=== PATIENT | female | born 1930 | race Caucasian/White ===

== ENCOUNTER 2017-05-08 08:47 | Inpatient (IN) | payer MEDICARE ==
[2017-05-08] MEDS ORDERED: TYLENOL 325 MG PO STA (09:06)
[2017-05-08] MEDS ORDERED: ROCEPHIN 1 Gm-D5w 50 ml Bag** 1 G/50 ML IVPB IV STA (09:06)
[2017-05-08 09:08] LABS: Granulocyte Absolute (ANC) 3.67 (1.4-6.9); Hematocrit 49.6 % (35-47); Hemoglobin 16.3 gm/dl (12.0-16.0); Mean Cell Volume 91.9 fl (78-100); Mean Corpuscular Hgb Concent. 32.9 g/dl (32-36); Mean Platelet Volume 10.6 fl (6-9.5); Platelet Count 140 K/mm3 (150-450); Red Cell Distribution Width 14.3 % (11.5-14.0); White Blood Count 6.3 K/mm3 (4.0-10.5)
[2017-05-08 09:11] LABS: Appearance HAZY (CLEAR); Bilirubin NEGATIVE (NEGATIVE); Blood 250 Ery/ul (0-5); Glucose NEGATIVE (NEGATIVE); Ketones NEGATIVE (NEGATIVE); Leukocyte Esterase 2+ (NEGATIVE); Nitrite POSITIVE (NEGATIVE); Protein,Urine Dip 30 (Negative); Urobilinogen NORMAL mg/dL (0-1)
[2017-05-08] MEDS ORDERED: Sodium Chloride 0.9% 1000 ML 1,000 ML IV SCH (09:15)
[2017-05-08] MEDS ORDERED: ROCEPHIN 1 Gm-D5w 50 ml Bag** 1 G/50 ML IVPB IV ONE (09:21)
[2017-05-08] MEDS ORDERED: TYLENOL 325 MG ONE (09:21)
[2017-05-08] MEDS ORDERED: Sodium Chloride 0.9% 1000 ML 1,000 ML ONE (09:21)
[2017-05-08 09:22] LABS: Bacteria MANY /HPF (NEGATIVE); Epithelial Cells FEW /HPF (FEW); WBC 50-100 /HPF (0-5)
--- NOTE | 2017-05-08 09:25 | ERPHSYRPT ---
- History of Present Illness Time Seen by Provider: 05/08/17 08:56 Source: patient, family (son Jurgen), EMS Patient Subjective Stated Complaint: Pt states "Yesterday I felt lousy and I took my temp and I have a fever." Triage Nursing Assessment: Pt alert and oriented X 3, skin pwd. Pt able to speak in clear full sentences. Pt has rash on right breast that wraps around to the the right back and stops in the center of her back. Pt has open wound on her left ankle, approx 4 cm X 1/5 cm, no bleeding noted Physician History: CC: general weakness Hx: 86 y/o patient brought to ER per EMS. She noted general weakness, fever to 100 at home since last evening. 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 She has some headache. No sore throat, cough, abd pain, vomiting or diarrhea. She has been drinking water and sitting in her lazy boy but had trouble getting up due to general weakness. She sees Dr Nelson. Has hx of HTN. Lives alone. Allergic to Sulfa. She did not know she had a right chest/back rash. Timing/Duration: yesterday Severity: moderate Allergies/Adverse Reactions: Sulfa (Sulfonamide Antibiotics) Allergy (Verified 02/12/16 09:03) Hives Home Medications: Atenolol [Atenolol] 50 mg PO DAILY 05/08/17 [History] Diltiazem HCl [Cartia Xt] 300 mg PO DAILY 05/08/17 [History] Hx Tetanus, Diphtheria Vaccination/Date Given: Yes Hx Influenza Vaccination/Date Given: Yes Hx Pneumococcal Vaccination/Date Given: Yes Immunizations Up to Date: Yes - Review of Systems Constitutional: Fever, Fatigue, Malaise, Weakness Eyes: No Symptoms Ears, Nose, & Throat: No Nose Congestion, No Throat Pain Respiratory: No Cough, No Dyspnea Cardiac: Edema, No Chest Pain Abdominal/Gastrointestinal: No Abdominal Pain, No Nausea, No Vomiting, No Diarrhea Genitourinary Symptoms: No Dysuria Musculoskeletal: No Back Pain, No Fall Skin: Skin Lesions (ulcer right ankle) Neurological: Headache, No Dizziness, No Focal Weakness, No Parasthesia All Other Systems: Reviewed and Negative - Past Medical History Pertinent Past Medical History: Yes Neurological History: No Pertinent History ENT History: Cataracts Cardiac History: Hypertension Respiratory History: No Pertinent History Endocrine Medical History: No Pertinent History Musculoskeletal History: No Pertinent History GI Medical History: GI Bleed, Ulcer History: Other Psycho-Social History: No Pertinent History Female Reproductive Disorders: No Pertinent History Other Medical History: viral hepititis - Past Surgical History Past Surgical History: Yes Neuro Surgical History: No Pertinent History Cardiac: Vascular Surgery Respiratory: No Pertinent History Gastrointestinal: No Pertinent History Genitourinary: No Pertinent History Musculoskeletal: No Pertinent History Female Surgical History: No Pertinent History Other Surgical History: Tied off a varicose vein, cataracts removed, EGD - Social History Smoking Status: Never smoker Exposure to second hand smoke: No Drug Use: none Patient Lives Alone: Yes - Female History Hx Last Menstrual Period: no more - Nursing Vital Signs Nursing Vital Signs: Initial Vital Signs Temperature 101.2 F 05/08/17 08:49 Pulse Rate 96 H 05/08/17 08:49 Respiratory Rate 18 05/08/17 08:49 Blood Pressure 182/85 05/08/17 08:49 O2 Sat by Pulse Oximetry 95 05/08/17 08:49 Pain Scale Pain Intensity 0 - Physical Exam General Appearance: alert, other (pleasant elderly lady, talkative) Eye Exam: PERRL/EOMI Ears, Nose, Throat Exam: dry mucous membranes (cleansed with glycerine swabs) Neck Exam: normal inspection, non-tender, supple Respiratory Exam: normal breath sounds, No respiratory distress Cardiovascular Exam: regular rate/rhythm Gastrointestinal/Abdomen Exam: soft, No tenderness, No distention Extremity Exam: pedal edema, other (draining ulceration right medial ankle area without erythema) Neurologic Exam: alert, oriented x 3, cooperative, investigation division lieutenant II-XII nml as tested, sensation nml, No motor deficits Skin Exam: warm, dry, rash (vesicles with ulcerations dermatomal right chest around to right back consistent with zoster) SpO2 Interpretation: normal SpO2: 96 Oxygen Delivery: Room Air - Course Nursing assessment & vital signs reviewed: Yes EKG Interpreted by Me: RATE (90), Sinus Rhythm, NORMAL AXIS, Left [place] Deviation , LAFB, NORMAL INTERVALS (QTc 451), Non-specific ST Changes, Other (Poor R wave progression; PAC's) - Radiology Exams cxr X-ray Interpretation: Reviewed by me (increased interstitial markings, no consolidation) Ordered Tests: Active Orders 24 hr Category Date Time Status Tax Associate Attorney STAT Care 05/08/17 09:06 Active Cath for Specimen-Straight STAT Care 05/08/17 08:57 Active EKG-ER Only STAT Care 05/08/17 09:06 Active IV Insertion STAT Care 05/08/17 08:57 Active Pulse Oximetry (ED) STAT Care 05/08/17 09:06 Active CHEST 1 VIEW (PORTABLE) Stat Exams 05/08/17 09:06 Taken BLOOD CULTURE Stat Lab 05/08/17 09:20 Received CBC W DIFF Stat Lab 05/08/17 08:57 Completed CMP Stat Lab 05/08/17 08:55 Completed CULTURE,URINE Stat Lab 05/08/17 08:55 Received CULTURE,WOUND Stat Lab 05/08/17 09:20 Received Lactic Acid Stat Lab 05/08/17 08:57 Completed Manual Differential NC Stat Lab 05/08/17 08:57 Completed UA W/ MICROSCOPIC Stat Lab 05/08/17 08:55 Completed Medication Summary Generic Name Dose Route Start Last Admin Trade Name Freq PRN Reason Stop Dose Admin Acyclovir 800 mg 05/08/17 11:00 Zovirax 800 Mg PO 06/07/17 10:59 5XD JESUS Sodium Chloride 1,000 mls @ 100 mls/hr 05/08/17 09:15 05/08/17 09:23 Sodium Chloride 0.9% 1000 Ml IV 06/07/17 09:14 100 mls/hr .Q10H JESUS Administration Discontinued Medications Generic Name Dose Route Start Last Admin Trade Name Freq PRN Reason Stop Dose Admin Acetaminophen 975 mg 05/08/17 09:06 05/08/17 09:23 Tylenol 325 Mg PO 05/08/17 09:07 975 mg STAT STA Administration Acetaminophen Confirm 05/08/17 09:21 Tylenol 325 Mg Administered 05/08/17 09:22 Dose 975 mg .ROUTE .STK-MED ONE Ceftriaxone Sodium/Dextrose 1 g in 50 mls @ 100 mls/hr 05/08/17 09:06 09:22 Rocephin 1 Gm-D5w 50 Ml Bag IV 05/08/17 09:35 100 mls/hr STAT STA Administration Ceftriaxone Sodium/Dextrose Confirm 05/08/17 09:21 Rocephin 1 Gm-D5w 50 Ml Bag Administered 05/08/17 09:22 Dose 1 g in 50 mls @ ud IV .STK-MED ONE Ondansetron HCl 4 mg 05/08/17 09:36 05/08/17 09:53 Zofran 4 Mg/2 Ml Vial IV 05/08/17 09:37 4 mg STAT ONE Administration Ondansetron HCl Confirm 05/08/17 09:52 Zofran 4 Mg/2 Ml Vial Administered 05/08/17 09:53 Dose 4 mg .ROUTE .STK-MED ONE Lab/Rad Data: Laboratory Result Diagrams 05/08/17 08:57 05/08/17 08:55 Laboratory Results 05/08/17 05/08/17 05/08/17 Range/Units 09:20 08:57 08:57 WBC 6.3 (4.0-10.5) K/mm3 RBC 5.40 (4.1-5.4) M/mm3 Hgb 16.3 H (12.0-16.0) gm/dl Hct 49.6 H (35-47) % MCV 91.9 (78-100) fl MCH 30.1 (26-32) pg MCHC 32.9 (32-36) g/dl RDW 14.3 H (11.5-14.0) % Plt Count 140 L (150-450) K/mm3 MPV 10.6 H (6-9.5) fl Segmented Neutrophils 54 (36.0-66.0) % Lymphocytes (Manual) 41 (24-44) % Monocytes (Manual) 5 (0.0-12.0) % Differential Comment ABNORMAL Platelet Estimate NORMAL (NORMAL) Poikilocytosis 1+ Anisocytosis 1+ Sodium (136-145) mEq/L Potassium (3.5-5.1) mEq/L Chloride (98-107) mEq/L Carbon Dioxide (21-32) mEq/L Anion Gap (5-15) MEQ/L BUN (9-20) mg/dL Creatinine (0.55-1.30) mg/dl Estimated GFR ML/MIN Glucose (70-110) MG/DL Lactic Acid 1.8 (0.4-2.0) Calcium (8.5-10.1) mg/dL Total Bilirubin (0.2-1.0) mg/dL AST (15-37) U/L ALT (12-78) U/L Alkaline Phosphatase (46-116) U/L Serum Total Protein (6.4-8.2) gm/dL Albumin (3.4-5.0) g/dL Ur Collection Type Urine Color (YELLOW) Urine Appearance (CLEAR) Urine pH (5-6) Ur Specific [place] (1.005-1.025) Urine Protein (Negative) Urine Ketones (NEGATIVE) Urine Blood (0-5) Tony/ul Urine Nitrite (NEGATIVE) Urine Bilirubin (NEGATIVE) Urine Urobilinogen (0-1) mg/dL Ur Leukocyte Esterase (NEGATIVE) Urine Microscopic RBC (0-2) /HPF Urine Microscopic WBC (0-5) /HPF Ur Epithelial Cells (FEW) /HPF Urine Bacteria (NEGATIVE) /HPF Urine Culture Reflexed (NO) Urine Glucose (NEGATIVE) mg/dL Influenza Type A Ag NEGATIVE (NEGATIVE) Influenza Type B Ag NEGATIVE (NEGATIVE) RSV (PCR) NEGATIVE (Negative) Specimen Received 05/08/17 05/08/17 Range/Units 08:55 08:55 WBC (4.0-10.5) K/mm3 RBC (4.1-5.4) M/mm3 Hgb (12.0-16.0) gm/dl Hct (35-47) % MCV (78-100) fl MCH (26-32) pg MCHC (32-36) g/dl RDW (11.5-14.0) % Plt Count (150-450) K/mm3 MPV (6-9.5) fl Segmented Neutrophils (36.0-66.0) % Lymphocytes (Manual) (24-44) % Monocytes (Manual) (0.0-12.0) % Differential Comment Platelet Estimate (NORMAL) Poikilocytosis Anisocytosis Sodium 135 L (136-145) mEq/L Potassium 3.4 L (3.5-5.1) mEq/L Chloride 97 L (98-107) mEq/L Carbon Dioxide 26.9 (21-32) mEq/L Anion Gap 14.7 (5-15) MEQ/L BUN 10 (9-20) mg/dL Creatinine 0.78 (0.55-1.30) mg/dl Estimated GFR > 60 ML/MIN Glucose 103 (70-110) MG/DL Lactic Acid (0.4-2.0) Calcium 8.8 (8.5-10.1) mg/dL Total Bilirubin 1.00 (0.2-1.0) mg/dL AST 22 (15-37) U/L ALT 14 (12-78) U/L Alkaline Phosphatase 91 (46-116) U/L Serum Total Protein 8.8 H (6.4-8.2) gm/dL Albumin 3.8 (3.4-5.0) g/dL Ur Collection Type CATH Urine Color YELLOW (YELLOW) Urine Appearance HAZY (CLEAR) Urine pH 7.0 (5-6) Ur Specific [place] 1.010 (1.005-1.025) Urine Protein 30 (Negative) Urine Ketones NEGATIVE (NEGATIVE) Urine Blood 250 (0-5) Tony/ul Urine Nitrite POSITIVE (NEGATIVE) Urine Bilirubin NEGATIVE (NEGATIVE) Urine Urobilinogen NORMAL (0-1) mg/dL Ur Leukocyte Esterase 2+ (NEGATIVE) Urine Microscopic RBC 5-10 (0-2) /HPF Urine Microscopic WBC 50-100 (0-5) /HPF Ur Epithelial Cells FEW (FEW) /HPF Urine Bacteria MANY (NEGATIVE) /HPF Urine Culture Reflexed YES (NO) Urine Glucose NEGATIVE (NEGATIVE) mg/dL Influenza Type A Ag (NEGATIVE) Influenza Type B Ag (NEGATIVE) RSV (PCR) (Negative) Specimen Received 05-08-17 900 - Progress Progress Note: 05/08/17 10:20 She has febrile UTI. Also zoster. Pt and family aware of test results and plan. Spoke to Dr Dillon for IP admission. Will use rocephin and acyclovir. Discussed with .: Santana Will see patient in: hospital (full admit) Counseled pt/family regarding: lab results, diagnosis, need for follow-up, rad results - Departure Time of Disposition: 10:21 Departure Disposition: In-patient Admission Clinical Impression: UTI (urinary tract infection), Zoster, Ankle ulcer Condition: Fair Critical Care Time: No Referrals: JAVIER NELSON [Primary Care Provider] -
[2017-05-08 09:29] LABS: Mean Corpuscular Hemoglobin 30.1 pg (26-32)
[2017-05-08] MEDS ORDERED: Zofran 4 MG/2 ML VIAL IV ONE (09:36)
[2017-05-08 09:43] LABS: ALBUMIN 3.8 g/dL (3.4-5.0); ALKALINE PHOSPHATASE 91 U/L (46-116); ANION GAP 14.7 MEQ/L (5-15); BLOOD UREA NITROGEN 10 mg/dL (9-20); CHLORIDE 97 mEq/L (98-107); Calcium 8.8 mg/dL (8.5-10.1); Carbon Dioxide 26.9 mEq/L (21-32); Creatinine 1 0.78 mg/dl (0.55-1.30); EST GLOMERULAR FILTRATION RATE > 60 ML/MIN; Glucose 103 MG/DL (70-110); Potassium 3.4 mEq/L (3.5-5.1); SGOT/AST 22 U/L (15-37); SGPT/ALT 14 U/L (12-78); SODIUM 135 mEq/L (136-145); Total Protein 8.8 gm/dL (6.4-8.2)
[2017-05-08 09:46] LABS: Lymphocytes 41 % (24-44); Monocyte 5 % (0.0-12.0); Neutrophils 54 % (36.0-66.0); Total Cells Counted 100
[2017-05-08 09:47] LABS: ANISOCYTOSIS 1+; Platelet Estimate NORMAL (NORMAL); Poikilocytosis 1+
[2017-05-08] MEDS ORDERED: Zofran 4 MG/2 ML VIAL ONE (09:52)
[2017-05-08 10:19] LABS: INFLUENZA A NEGATIVE (NEGATIVE); INFLUENZA B NEGATIVE (NEGATIVE); RESPIRATORY SYNCTIAL VIRUS NEGATIVE (Negative)
[2017-05-08] MEDS ORDERED: Zofran 4 MG/2 ML VIAL IV PRN (11:17)
[2017-05-08] MEDS: Sodium Chloride 0.9% 1000 ML 1,000 ML IV SCH ×2 (11:22→19:59)
[2017-05-08] MEDS: ZOVIRAX 800 MG PO SCH ×4 (11:22→22:50)
[2017-05-08] MEDS: ENOXAPARIN SODIUM SQ SCH (12:13)
[2017-05-08] MEDS: PROTONIX 40 MG IV IV SCH (12:14)
[2017-05-08] MEDS: TENORMIN 50 MG PO SCH (15:37)
[2017-05-08] MEDS: Cardizem CD 300 MG PO SCH (15:38)
[2017-05-08] MEDS: TYLENOL 325 MG PO PRN ×2 (15:46→22:50)
--- NOTE | 2017-05-08 22:47 | XRAY ---
Indication: Sepsis. Comparison: February 16, 2016. Portable chest clear again with incidental left base calcified granuloma. Heart and mediastinal structures within normal limits for AP portable technique. Bony thorax intact again with mild osteopenia and degenerative changes. No new/acute findings. Impression: Nonacute chest with chronic features.
[2017-05-09] MEDS ORDERED: BENADRYL 12.5 MG/5 ML PO PRN (03:41)
[2017-05-09] MEDS: Sodium Chloride 0.9% 1000 ML 1,000 ML IV SCH ×2 (05:50→18:16)
[2017-05-09] MEDS: ZOVIRAX 800 MG PO SCH ×5 (05:52→22:00)
[2017-05-09] MEDS: ENOXAPARIN SODIUM SQ SCH (09:34)
[2017-05-09] MEDS: Cardizem CD 300 MG PO SCH (09:34)
[2017-05-09] MEDS: PROTONIX 40 MG IV IV SCH (09:34)
[2017-05-09] MEDS: ROCEPHIN 1 Gm-D5w 50 ml Bag** 1 G/50 ML IVPB IV SCH (09:34)
[2017-05-09] MEDS: TENORMIN 50 MG PO SCH (09:34)
--- NOTE | 2017-05-09 15:07 | PCM.NOTE ---
Date and Time: 05/09/17 1504 Subjective Assessment: She had some itching in the area of her shingles overnight but denies pain. She reports the benadryl did help. She denies a headache today and states she is feeling better but still weak and not ready to go home. - Review of Systems Constitutional: Weakness Eyes: No Symptoms Ears, Nose, & Throat: No Symptoms Respiratory: No Symptoms Cardiac: No Symptoms Abdominal/Gastrointestinal: No Symptoms Genitourinary Symptoms: No Symptoms Musculoskeletal: No Symptoms Skin: Pruritis, Rash Objective Exam General Appearance: no apparent distress, alert Neurologic Exam: alert, cooperative, normal mood/affect Skin Exam: normal color, warm, dry, other (blisters in dermatome distribution on right side of chest across breast and to back, some blisters are open.) Respiratory Exam: normal breath sounds, lungs clear, No crackles/rales, No rhonchi, No wheezing Cardiovascular Exam: regular rate/rhythm, normal heart sounds, No murmur, No friction rub, No gallop Gastrointestinal/Abdomen Exam: soft, normal bowel sounds, No tenderness, No distention, No mass, No guarding Extremity Exam: other (no c/c/e; right ankle dressed.) OBJECTIVE DATA Vital Signs: Vital Signs - 24 hr Temp Pulse Resp BP BP Pulse Ox 05/09/17 12:46 98 F 86 20 126/74 95 05/09/17 09:34 90 174/84 05/09/17 07:21 98 F 90 20 147/81 94 L 05/09/17 04:00 98.1 F 76 20 132/71 95 05/09/17 00:19 99.1 F 67 20 128/62 92 L 05/08/17 20:16 99.1 F 67 20 128/62 92 L 05/08/17 16:00 98 F 93 H 18 147/83 95 05/08/17 15:37 99 H 174/84 Pain Assessment - Last Documented Pain Intensity 0 Pain Scale Used 0-10 Pain Scale Intake and Output: Intake & Output 05/07/17 05/08/17 05/09/17 05/10/17 06:59 06:59 06:59 06:59 Intake Total 1822 420 Balance 1822 420 Weight 84.096 kg 84.731 kg Assessment/Plan (1) UTI (urinary tract infection) Current Visit: Yes Status: Acute Assessment & Plan: Continue ceftriaxone, Urine culture in lab. Code(s): N39.0 - URINARY TRACT INFECTION, SITE NOT SPECIFIED (2) Zoster Current Visit: Yes Status: Acute Assessment & Plan: Continue acyclovir. Benadryl as needed for itching. Code(s): B02.9 - ZOSTER WITHOUT COMPLICATIONS (3) Hypertension Current Visit: Yes Status: Acute Assessment & Plan: Currently well controlled. Code(s): I10 - ESSENTIAL (PRIMARY) HYPERTENSION
[2017-05-10] MEDS: Sodium Chloride 0.9% 1000 ML 1,000 ML IV SCH (02:45)
[2017-05-10 06:16] LABS: Granulocyte Absolute (ANC) 4.38 (1.4-6.9); Hematocrit 37.3 % (35-47); Hemoglobin 12.2 gm/dl (12.0-16.0); Mean Cell Volume 92.3 fl (78-100); Mean Corpuscular Hgb Concent. 32.7 g/dl (32-36); Mean Platelet Volume 10.6 fl (6-9.5); Platelet Count 134 K/mm3 (150-450); Red Blood Count 4.04 M/mm3 (4.1-5.4); Red Cell Distribution Width 13.7 % (11.5-14.0); White Blood Count 7.2 K/mm3 (4.0-10.5)
[2017-05-10 06:31] LABS: Mean Corpuscular Hemoglobin 30.1 pg (26-32)
[2017-05-10 06:35] LABS: ANION GAP 14.1 MEQ/L (5-15); BLOOD UREA NITROGEN 10 mg/dL (9-20); CHLORIDE 103 mEq/L (98-107); Calcium 7.8 mg/dL (8.5-10.1); Carbon Dioxide 21.5 mEq/L (21-32); Creatinine 1 0.59 mg/dl (0.55-1.30); EST GLOMERULAR FILTRATION RATE > 60 ML/MIN; Glucose 91 MG/DL (70-110); SODIUM 136 mEq/L (136-145)
[2017-05-10 06:37] LABS: Potassium 2.8 mEq/L (3.5-5.1)
[2017-05-10 07:10] LABS: Lymphocytes 16 % (24-44); Monocyte 9 % (0.0-12.0); Neutrophils 75 % (36.0-66.0); Platelet Estimate NORMAL (NORMAL); Poikilocytosis 1+; Total Cells Counted 100
[2017-05-10] MEDS: ZOVIRAX 800 MG PO SCH ×4 (08:40→20:23)
[2017-05-10] MEDS: POTASSIUM CHLORIDE 20 mEq IN WATER 100ML 20 MEQ/100 ML BAG IV SCH ×2 (08:40→10:50)
[2017-05-10] MEDS: D5W/0.45NS W/ 20mEq KCl 1000 ML 1,000 ML IV SCH (08:49)
--- NOTE | 2017-05-10 09:19 | HP ---
HISTORY OF PRESENT ILLNESS: This is an 86 year-old patient who presented to the emergency department. She reported she started feeling bad on and worse when she woke up this morning. She reports a temperature up to 101F and in general feeling weak. She called her son to come and check on her and he brought her to the emergency department for further evaluation. In the emergency department she was found to have a urinary tract infection as well as shingles over her right side from the midline across her breast around to the back. She reports no pain from this and did not know the rash was present. She does report a history of chicken pox in the past. She reports she has not had much of an appetite. She receives Meals On Wheels that she states helps with eating a well-balanced diet. She reports not sleeping well last night and she is concerned about taking care of herself at home at this point. REVIEW OF SYSTEMS: She denies any nausea, vomiting or diarrhea. No runny nose. She has a little bit of a headache. 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 She denies any pain from the rash that she has on her chest. She denies any dysuria. She has had a fever at home. PAST MEDICAL HISTORY: History of GI bleed. History of cataracts, hypertension. PAST SURGICAL HISTORY: Varicose vein surgery. Cataract surgery. Upper endoscopy. MEDICATIONS: Atenolol 50 mg p.o. daily, diltiazem 300 mg p.o. daily. ALLERGIES: SULFA. SOCIAL HISTORY: She lives alone. No tobacco or alcohol use. FAMILY HISTORY: Noncontributory. PHYSICAL EXAMINATION: VITAL SIGNS: Temperature current 98.9F, temperature max 101.2F, heart rate 82 to 99, respiratory rate 18 to 20, blood pressure 131 to 182 over 76 to 85. Oxygen saturation 93 to 94% on room air. GENERAL: The patient is sitting up a pleasant talkative lady in no acute distress. CVS: She has a regular rate and rhythm. No murmurs, gallops or rubs are appreciated. CHEST: Clear to auscultation bilaterally. No crackles or wheezes. ABDOMEN: Soft, nontender, nondistended with normal bowel sounds. EXTREMITIES: Her right lower leg is dressed. She had this leg reviewed in the emergency department. Please see the emergency room physician note on this. She has a rash in the dermatome distribution across her right breast radiating around to the midline to the back, this is erythematous with no induration, starting to form some blisters, a little bit of scabbing in the anterior medial aspect of the rash. LABORATORY DATA AND TESTS: Her UA had many bacteria, 50-100 white blood cell, 5-10 red blood cells. Influenza A/B and respiratory syncytial virus were negative. Sodium was 135, potassium 3.4, chloride 97. Hemoglobin 16.3. Chest x-ray currently no formal report from the radiologist. ASSESSMENT AND PLAN: 1) FEBRILE URINARY TRACT INFECTION: She has been started on ceftriaxone. Urine cultures have been sent, will continue to monitor the results of that sensitivity. 2) HERPES ZOSTER: She has been started on acyclovir, will continue with this. She currently does not have any pain from this. 3) HISTORY OF HYPERTENSION: We will restart her home antihypertensive and make sure she receives those doses today.
[2017-05-10] MEDS: ENOXAPARIN SODIUM SQ SCH (10:00)
[2017-05-10] MEDS: ROCEPHIN 1 Gm-D5w 50 ml Bag** 1 G/50 ML IVPB IV SCH (10:00)
[2017-05-10] MEDS: TENORMIN 50 MG PO SCH (10:00)
[2017-05-10] MEDS: PROTONIX 40 MG IV IV SCH (10:00)
[2017-05-10] MEDS: Cardizem CD 300 MG PO SCH (10:01)
[2017-05-11] MEDS: ZOVIRAX 800 MG PO SCH ×3 (00:19→10:41)
[2017-05-11] MEDS: D5W/0.45NS W/ 20mEq KCl 1000 ML 1,000 ML IV SCH (03:52)
[2017-05-11 07:27] LABS: Granulocyte Absolute (ANC) 4.66 (1.4-6.9); Hematocrit 40.2 % (35-47); Hemoglobin 13.3 gm/dl (12.0-16.0); Mean Cell Volume 91.4 fl (78-100); Mean Corpuscular Hemoglobin 30.2 pg (26-32); Mean Corpuscular Hgb Concent. 33.1 g/dl (32-36); Mean Platelet Volume 10.9 fl (6-9.5); Platelet Count 141 K/mm3 (150-450); Red Cell Distribution Width 13.6 % (11.5-14.0); White Blood Count 7.1 K/mm3 (4.0-10.5)
[2017-05-11 08:08] LABS: ANION GAP 13.4 MEQ/L (5-15); BLOOD UREA NITROGEN 5 mg/dL (9-20); CHLORIDE 103 mEq/L (98-107); Calcium 8.1 mg/dL (8.5-10.1); Carbon Dioxide 24.6 mEq/L (21-32); Creatinine 1 0.58 mg/dl (0.55-1.30); EST GLOMERULAR FILTRATION RATE > 60 ML/MIN; Glucose 117 MG/DL (70-110); SODIUM 138 mEq/L (136-145)
[2017-05-11 08:12] LABS: Potassium 2.8 mEq/L (3.5-5.1)
[2017-05-11 08:25] LABS: Eosinophil 4 % (0.00-3.0); Lymphocytes 22 % (24-44); Monocyte 8 % (0.0-12.0); Neutrophils 66 % (36.0-66.0); Total Cells Counted 100
[2017-05-11 08:26] LABS: Platelet Estimate NORMAL (NORMAL)
--- NOTE | 2017-05-11 09:18 | PCM.DCORD ---
- Discharge Discharge Date: 05/11/17 Disposition: DC TO [facility] Condition: Fair Prescriptions: New Acyclovir 800 mg [Zovirax 800 mg] 800 mg PO 5XD #15 tablet Amoxicillin/Potassium Clav [Augmentin 875 mg (Amox Tr-K Clv 875-125 mg)] 1 each PO BID #6 tablet Continue Diltiazem HCl [Cartia Xt] 300 mg PO DAILY Atenolol 50 mg PO DAILY Follow up with: JAVIER PINEDA [Primary Care Provider] - 05/18/17 10:30 am Forms: Patient Portal Information
[2017-05-11] MEDS ORDERED: POTASSIUM CHLORIDE 20 mEq IN WATER 100ML 20 MEQ/100 ML BAG IV SCH (09:30)
[2017-05-11] MEDS ORDERED: Klor Con 10 MEQ PO SCH (10:00)
[2017-05-11] MEDS: PROTONIX 40 MG IV IV SCH (10:38)
[2017-05-11] MEDS: TENORMIN 50 MG PO SCH (10:41)
[2017-05-11] MEDS: ROCEPHIN 1 Gm-D5w 50 ml Bag** 1 G/50 ML IVPB IV SCH (10:43)
[2017-05-11] MEDS: ENOXAPARIN SODIUM SQ SCH (10:43)
[2017-05-11] MEDS: Cardizem CD 300 MG PO SCH (10:44)
[2017-05-11 10:46] VITALS: BP 149/71; PULSE 62
[2017-05-11 11:00] VITALS: O2SAT 96
--- NOTE | 2017-05-12 11:34 | DS ---
DISCHARGE DIAGNOSES: 1) URINARY TRACT INFECTION. 2) SHINGLES. 3) LEFT LOWER EXTREMITY LEG WOUND. HOSPITAL COURSE: The patient is an 86 year-old white female who has been experiencing increased weakness recently. She has large areas of shingles involving the right breast radiating around to her back. The patient reports that she got weak and presented to the emergency room. She was also found to have a urinary tract infection which did grow out Escherichia coli that was sensitive to everything. The wound likewise was positive for Escherichia coli also sensitive to everything. The patient had been placed on IV Rocephin. She improved with IV fluid hydration and Rocephin. The patient complained that she was too weak to return home at the end of the four days of her stay. We therefore consulted for rehab for the patient to there for a couple weeks for continued physical therapy and wound management. The patient's discharge plans were to be discharged on acyclovir 800 mg five times a day for additional three days and Augmentin 875 mg b.i.d. for additional three days also for urinary tract infection. The patient will have wound care management for the shingles and right lower extremity wound. The patient will be continued on her usual home medications otherwise as listed in the history and physical. It was also noted that the patient was hypokalemic and after receiving IV fluids now 2.8. She did receive potassium riders on two separate occasions and she was placed on oral potassium 10 mEq a day. We will be following this as an outpatient. The patient is not on any diuretic presently to explain her hypokalemia. The patient's CBC was good. The patient did apparently grow gram-positive cocci in the blood culture but I feel that this is likely a contaminant as the patient does not appear septic whatsoever and will likely come back as Staphylococcus Epidermis.
== END 2017-05-11 14:20 | DRG 690 ==
LOC: ED 08:47 → MED SURG 10:54
PROVIDERS: ADMIT Internal Medicine; ATTEND Family Medicine
DX: N39.0 Urinary tract infection, site not specified (principal); B96.20 Unspecified Escherichia coli [E. coli] as the cause of diseases classified elsewhere; L97.329 Non-pressure chronic ulcer of left ankle with unspecified severity; B02.9 Zoster without complications; S91.002A Unspecified open wound, left ankle, initial encounter; I10 Essential (primary) hypertension; E87.5 Hyperkalemia; I83.013 Varicose veins of right lower extremity with ulcer of ankle
CPT/HCPCS: 36415; 71045; 80048; 80053; 81000; 83605; 84132; 85025; 87040; 87070; 87077; 87086; 87186; 87631; 93005; 93041; 96360; 99285; J0696; J1650; J2405; J3480; P9612; A9270-GY

== ENCOUNTER 2017-12-28 01:10 | Inpatient (IN) | payer MEDICARE ==
[2017-12-28] MEDS ORDERED: Sodium Chloride 0.9% 1000 ML 1,000 ML IV STA (01:25)
[2017-12-28] MEDS ORDERED: Phenergan 25 MG INJ IV ONE (01:25)
--- NOTE | 2017-12-28 01:25 | ERPHSYRPT ---
- History of Present Illness Time Seen by Provider: 12/28/17 01:21 Source: patient, family (son) Exam Limitations: no limitations Physician History: The patient is an 87-year-old female with her son brought in by ambulance from home where she had a sudden onset of nausea and vomiting starting at 9 PM, 4 hours ago. She denies diarrhea. She has some crampy epigastric uneasiness. She states the nausea is making her feel terrible. She denies fever or chills. She was given Zofran 4 mg by IV by EMT without improvement. Her past medical history is significant for hypertension and gastric ulcer. Timing/Duration: hour(s) (4), sudden Severity: severe Associated Symptoms: nausea, vomiting, abdominal pain Allergies/Adverse Reactions: Sulfa (Sulfonamide Antibiotics) Allergy (Verified 12/28/17 01:22) Hives Home Medications: Atenolol 50 mg PO DAILY 05/08/17 [History] Diltiazem HCl [Cartia Xt] 300 mg PO DAILY 05/08/17 [History] Hx Tetanus, Diphtheria Vaccination/Date Given: Yes Hx Influenza Vaccination/Date Given: Yes Hx Pneumococcal Vaccination/Date Given: Yes - Review of Systems Constitutional: No Fever, No Chills Eyes: No Symptoms Ears, Nose, & Throat: No Symptoms Respiratory: No Cough, No Dyspnea Cardiac: No Chest Pain, No Edema, No Syncope Abdominal/Gastrointestinal: Abdominal Pain, Nausea, Vomiting, No Diarrhea Genitourinary Symptoms: No Dysuria Musculoskeletal: No Back Pain, No Neck Pain Skin: No Rash Neurological: No Dizziness, No Focal Weakness, No Sensory Changes Psychological: No Symptoms Endocrine: No Symptoms Hematologic/Lymphatic: No Symptoms Immunological/Allergic: No Symptoms All Other Systems: Reviewed and Negative - Past Medical History Pertinent Past Medical History: Yes Neurological History: No Pertinent History ENT History: Cataracts Cardiac History: Hypertension Respiratory History: No Pertinent History Endocrine Medical History: No Pertinent History Musculoskeletal History: No Pertinent History GI Medical History: GI Bleed, Ulcer History: Other Psycho-Social History: No Pertinent History Female Reproductive Disorders: No Pertinent History Other Medical History: viral hepititis - Past Surgical History Past Surgical History: Yes Neuro Surgical History: No Pertinent History Cardiac: Vascular Surgery Respiratory: No Pertinent History Gastrointestinal: No Pertinent History Genitourinary: No Pertinent History Musculoskeletal: No Pertinent History Female Surgical History: No Pertinent History Other Surgical History: Tied off a varicose vein, cataracts removed, EGD - Social History Smoking Status: Never smoker Exposure to second hand smoke: No Drug Use: none Patient Lives Alone: Yes - Nursing Vital Signs Nursing Vital Signs: Initial Vital Signs Pulse Rate 65 12/28/17 01:16 Respiratory Rate 18 12/28/17 01:16 Blood Pressure 175/104 12/28/17 01:16 O2 Sat by Pulse Oximetry 92 L 12/28/17 01:16 Pain Scale Pain Intensity 0 - Physical Exam General Appearance: moderate distress Eye Exam: PERRL/EOMI, eyes nml inspection Ears, Nose, Throat Exam: normal ENT inspection, TMs normal, pharynx normal, moist mucous membranes Neck Exam: normal inspection, non-tender, supple, full range of motion Respiratory Exam: normal breath sounds, lungs clear, No respiratory distress Cardiovascular Exam: regular rate/rhythm, normal heart sounds, normal peripheral pulses Gastrointestinal/Abdomen Exam: normal bowel sounds, tenderness (mild epigastric) Pelvic Exam: not done Rectal Exam: not done Back Exam: normal inspection, normal range of motion, No CVA tenderness, No vertebral tenderness Extremity Exam: normal inspection, normal range of motion, pelvis stable Neurologic Exam: alert, oriented x 3, cooperative, normal mood/affect, nml cerebellar function, nml station & gait, sensation nml, No motor deficits Skin Exam: normal color, warm, dry, No rash Lymphatic Exam: No adenopathy SpO2 Interpretation: normal - CT Exams Abdomen/Pelvis CT Interpretation: Discussed w/radiologist (per Dr Lunsford), Other (small bowel obstruction that initiates in the large left inquinal hernia.) Ordered Tests: Active Orders 24 hr Category Date Time Status Clean Catch Urine Specimen STAT Care 12/28/17 01:25 Active IV Insertion STAT Care 12/28/17 01:25 Active ABDOMEN AND PELVIS W/0 CONTRAS [CT] Stat Exams 12/28/17 01:25 Taken CBC W DIFF Stat Lab 12/28/17 01:50 Completed CMP Stat Lab 12/28/17 01:50 Completed CULTURE,URINE Stat Lab 12/28/17 01:40 Received Lactic Acid Stat Lab 12/28/17 01:44 Completed Lactic Acid Stat Lab 12/28/17 04:01 Ordered UA W/ MICROSCOPIC Stat Lab 12/28/17 01:40 Completed Medication Summary Discontinued Medications Generic Name Dose Route Start Last Admin Trade Name Patti PRN Reason Stop Dose Admin Famotidine 20 mg 12/28/17 01:28 12/28/17 01:38 Pepcid 20 Mg Vial IV 12/28/17 01:29 20 mg STAT ONE Administration Famotidine Confirm 12/28/17 01:32 Pepcid 20 Mg Vial Administered 12/28/17 01:33 Dose 20 mg IV .STK-MED ONE Sodium Chloride 1,000 mls @ 999 mls/hr 12/28/17 01:25 12/28/17 01:38 Sodium Chloride 0.9% 1000 Ml IV 12/28/17 02:25 999 mls/hr .Q1H1M STA Administration Sodium Chloride Confirm 12/28/17 01:32 Sodium Chloride 0.9% 1000 Ml Administered 12/28/17 01:33 Dose 1,000 mls @ ud .ROUTE .STK-MED ONE Ondansetron HCl 4 mg 12/28/17 02:27 12/28/17 02:32 Zofran 4 Mg/2 Ml Vial IV 12/28/17 02:28 4 mg STAT ONE Administration Ondansetron HCl Confirm 12/28/17 02:30 Zofran 4 Mg/2 Ml Vial Administered 12/28/17 02:31 Dose 4 mg .ROUTE .STK-MED ONE Promethazine HCl 25 mg 12/28/17 01:25 12/28/17 01:38 Phenergan 25 Mg Inj IV 12/28/17 01:26 25 mg STAT ONE Administration Promethazine HCl Confirm 12/28/17 01:32 Phenergan 25 Mg Inj Administered 12/28/17 01:33 Dose 25 mg .ROUTE .STK-MED ONE Lab/Rad Data: Laboratory Result Diagrams 12/28/17 01:50 12/28/17 01:50 Laboratory Results 12/28/17 12/28/17 12/28/17 Range/Units 01:50 01:50 01:44 WBC 15.4 H (4.0-10.5) K/mm3 RBC 5.47 H (4.1-5.4) M/mm3 Hgb 17.0 H (12.0-16.0) gm/dl Hct 51.1 H (35-47) % MCV 93.4 (78-100) fl MCH 31.0 (26-32) pg MCHC 33.3 (32-36) g/dl RDW 14.1 H (11.5-14.0) % Plt Count 180 (150-450) K/mm3 MPV 10.6 H (6-9.5) fl Gran % 83.7 H (36.0-66.0) % Eos # (Auto) 0.02 (0-0.5) Absolute Lymphs (auto) 1.08 (1.0-4.6) Absolute Monos (auto) 1.36 H (0.0-1.3) Lymphocytes % 7.0 L (24.0-44.0) % Monocytes % 8.9 (0.0-12.0) % Eosinophils % 0.1 (0.00-5.0) % Basophils % 0.3 (0.0-0.4) % Absolute Granulocytes 12.86 H (1.4-6.9) Basophils # 0.04 (0-0.4) Sodium 143 (137-145) mmol/L Potassium 4.2 (3.5-5.1) mmol/L Chloride 103 (98-107) mmol/L Carbon Dioxide 26 (22-30) mmol/L Anion Gap 17.9 H (5-15) MEQ/L BUN 27 H (7-17) mg/dL Creatinine 0.91 (0.52-1.04) mg/dL Estimated GFR > 60.0 ML/MIN Glucose 190 H (74-106) mg/dL Lactic Acid 2.0 (0.4-2.0) Calcium 9.7 (8.4-10.2) mg/dL Total Bilirubin 0.70 (0.2-1.3) mg/dL AST 20 (14-36) U/L ALT 13 (0-35) U/L Alkaline Phosphatase 114 (38-126) U/L Serum Total Protein 8.7 H (6.3-8.2) g/dL Albumin 4.8 (3.5-5.0) g/dL Ur Collection Type Urine Color (YELLOW) Urine Appearance (CLEAR) Urine pH (5-6) Ur Specific [place] (1.005-1.025) Urine Protein (Negative) Urine Ketones (NEGATIVE) Urine Blood (0-5) Tony/ul Urine Nitrite (NEGATIVE) Urine Bilirubin (NEGATIVE) Urine Urobilinogen (0-1) mg/dL Ur Leukocyte Esterase (NEGATIVE) Urine Microscopic RBC (0-2) /HPF Urine Microscopic WBC (0-5) /HPF Ur Epithelial Cells (FEW) /HPF Urine Bacteria (NEGATIVE) /HPF Urine Culture Reflexed (NO) Urine Glucose (NEGATIVE) mg/dL Specimen Received 12/28/17 Range/Units 01:40 WBC (4.0-10.5) K/mm3 RBC (4.1-5.4) M/mm3 Hgb (12.0-16.0) gm/dl Hct (35-47) % MCV (78-100) fl MCH (26-32) pg MCHC (32-36) g/dl RDW (11.5-14.0) % Plt Count (150-450) K/mm3 MPV (6-9.5) fl Gran % (36.0-66.0) % Eos # (Auto) (0-0.5) Absolute Lymphs (auto) (1.0-4.6) Absolute Monos (auto) (0.0-1.3) Lymphocytes % (24.0-44.0) % Monocytes % (0.0-12.0) % Eosinophils % (0.00-5.0) % Basophils % (0.0-0.4) % Absolute Granulocytes (1.4-6.9) Basophils # (0-0.4) Sodium (137-145) mmol/L Potassium (3.5-5.1) mmol/L Chloride (98-107) mmol/L Carbon Dioxide (22-30) mmol/L Anion Gap (5-15) MEQ/L BUN (7-17) mg/dL Creatinine (0.52-1.04) mg/dL Estimated GFR ML/MIN Glucose (74-106) mg/dL Lactic Acid (0.4-2.0) Calcium (8.4-10.2) mg/dL Total Bilirubin (0.2-1.3) mg/dL AST (14-36) U/L ALT (0-35) U/L Alkaline Phosphatase (38-126) U/L Serum Total Protein (6.3-8.2) g/dL Albumin (3.5-5.0) g/dL Ur Collection Type CCMS Urine Color YELLOW (YELLOW) Urine Appearance SLIGHTLY CLOUDY (CLEAR) Urine pH 7.0 (5-6) Ur Specific [place] 1.015 (1.005-1.025) Urine Protein 30 (Negative) Urine Ketones NEGATIVE (NEGATIVE) Urine Blood TRACE NON-HEM (0-5) Tony/ul Urine Nitrite POSITIVE (NEGATIVE) Urine Bilirubin NEGATIVE (NEGATIVE) Urine Urobilinogen NORMAL (0-1) mg/dL Ur Leukocyte Esterase 2+ (NEGATIVE) Urine Microscopic RBC 0-2 (0-2) /HPF Urine Microscopic WBC 5-10 (0-5) /HPF Ur Epithelial Cells MODERATE (FEW) /HPF Urine Bacteria MANY (NEGATIVE) /HPF Urine Culture Reflexed YES (NO) Urine Glucose NEGATIVE (NEGATIVE) mg/dL Specimen Received 12-28-17 0345 - Progress Progress: improved Progress Note: 12/28/17 05:19 There was significant delay in the reading of the abd/pelvis CT scan because our internet was down for 2 hrs. Discussed with : Adalgisa Nelson (yesika consulted and agrees that Dr Milton will see pt in 2 hrs.) Will see patient in: hospital (full admit) Counseled pt/family regarding: diagnosis, rad results - Departure Time of Disposition: 05:34 Departure Disposition: In-patient Admission Clinical Impression: Small bowel obstruction Condition: Stable Critical Care Time: No Referrals: DAMIÁN CAMPBELL [Primary Care Provider] -
[2017-12-28] MEDS ORDERED: Pepcid 20 MG VIAL IV ONE ×2 (01:28→01:32)
[2017-12-28] MEDS ORDERED: Phenergan 25 MG INJ ONE (01:32)
[2017-12-28] MEDS ORDERED: Sodium Chloride 0.9% 1000 ML 1,000 ML ONE (01:32)
[2017-12-28 01:52] LABS: BASOPHIL % 0.3 % (0.0-0.4); Basophil (Absolute #) 0.04 (0-0.4); Eosinophil % 0.1 % (0.00-5.0); Eosinophil (Absolute #) 0.02 (0-0.5); Granulocyte Absolute (ANC) 12.86 (1.4-6.9); Granulocytes % 83.7 % (36.0-66.0); Hematocrit 51.1 % (35-47); Lymphocyte (Absolute #) 1.08 (1.0-4.6); Mean Cell Volume 93.4 fl (78-100); Mean Corpuscular Hgb Concent. 33.3 g/dl (32-36); Mean Platelet Volume 10.6 fl (6-9.5); Monocyte (Absolute #) 1.36 (0.0-1.3); Monocytes % 8.9 % (0.0-12.0); Platelet Count 180 K/mm3 (150-450); Red Blood Count 5.47 M/mm3 (4.1-5.4); Red Cell Distribution Width 14.1 % (11.5-14.0); White Blood Count 15.4 K/mm3 (4.0-10.5)
[2017-12-28 02:23] LABS: ALBUMIN 4.8 g/dL (3.5-5.0); ALKALINE PHOSPHATASE 114 U/L (38-126); ANION GAP 17.9 MEQ/L (5-15); BLOOD UREA NITROGEN 27 mg/dL (7-17); CHLORIDE 103 mmol/L (98-107); Calcium 9.7 mg/dL (8.4-10.2); Carbon Dioxide 26 mmol/L (22-30); Creatinine 1 0.91 mg/dL (0.52-1.04); Glucose 190 mg/dL (74-106); Potassium 4.2 mmol/L (3.5-5.1); SGOT/AST 20 U/L (14-36); SGPT/ALT 13 U/L (0-35); SODIUM 143 mmol/L (137-145); Total Protein 8.7 g/dL (6.3-8.2)
[2017-12-28] MEDS ORDERED: Zofran 4 MG/2 ML VIAL IV ONE (02:27)
[2017-12-28] MEDS ORDERED: Zofran 4 MG/2 ML VIAL ONE (02:30)
[2017-12-28 04:51] LABS: Appearance SLIGHTLY CLOUDY (CLEAR); Bilirubin NEGATIVE (NEGATIVE); Blood TRACE NON-HEM Ery/ul (0-5); Glucose NEGATIVE (NEGATIVE); Ketones NEGATIVE (NEGATIVE); Leukocyte Esterase 2+ (NEGATIVE); Nitrite POSITIVE (NEGATIVE); Protein,Urine Dip 30 (Negative); Specific Gravity 1.015 (1.005-1.025); Urobilinogen NORMAL mg/dL (0-1)
[2017-12-28 04:52] LABS: Bacteria MANY /HPF (NEGATIVE); Epithelial Cells MODERATE /HPF (FEW); RBC 0-2 /HPF (0-2)
[2017-12-28] MEDS ORDERED: Zofran 4 MG/2 ML VIAL IV PRN (06:23)
[2017-12-28] MEDS ORDERED: Phenergan 25 MG INJ IM PRN (06:23)
[2017-12-28] MEDS ORDERED: PHARMACY DOSING REQUEST MC ONE (08:40)
[2017-12-28] MEDS ORDERED: Phenergan 25 MG INJ IV PRN (08:40)
--- NOTE | 2017-12-28 09:52 | HP ---
CHIEF COMPLAINT: Vomiting. HISTORY OF PRESENT ILLNESS: The patient is an 87 year-old white female who reports that yesterday she was doing fine, had supper out with her son but began having problems with nausea and vomiting that became intractable and presented herself to the emergency room. She reported she did have a bowel movement yesterday and actually had a fairly normal but soft bowel movement this morning. The patient was given IV Zofran and then given some Phenergan and admitted to the hospital. Evaluation in the emergency room revealed a CT scan showing what appeared to be a small bowel obstruction and incarcerated hernia. Surgical consultation is being obtained. PAST MEDICAL/SURGICAL HISTORY: Significant for problems with peptic ulcer disease and GI bleeding. She has had peripheral artery disease, poor healing wounds in her lower extremities. She has varicose vein removed. HOME MEDICATIONS: Atenolol 50 mg a day, diltiazem XT 300 mg daily. ALLERGIES: SULFA. PHYSICAL EXAMINATION: Revealed vital signs in the emergency room with pulse 65, respiratory rate 18 and blood pressure 175/104. O2 saturation 92%. HEENT: Normocephalic, atraumatic. Pupils equal round reactive to light. Extraocular movements intact. Oropharynx is pink and moist. NECK: Supple without lymphadenopathy, thyromegaly or JVD. CHEST: Clear to auscultation with good air movement bilaterally. HEART: Regular rate and rhythm without murmurs, rubs or gallops. ABDOMEN: Soft. No palpable masses. The bowel sounds are diminished. She has bilateral inguinal hernias present but is soft and not significantly tender. EXTREMITIES: Without clubbing, cyanosis or edema. NEUROLOGIC: The patient is alert and oriented x3. SKIN: The patient does have rash in the suprapubic area consistent with that of a fungal infection. LAB DATA AND TESTS: White blood cell count 15,400, hemoglobin 17.0, PLT count 180,000. There did appear to be a left shift with 83.7% granulocytes. Her sugar nonfasting was 190. BUN 27, creatinine 0.91. Electrolytes were normal. Liver enzymes were normal. Urine did show positive nitrite with 5 to 10 white blood cells per high power field. Specific gravity 1.015. Lactic acid 2.0. CT scan again showed what appeared to be small bowel obstruction related to inguinal hernia. There was also noted to be slight hydronephrosis and slight dilatation of right ureter. ASSESSMENT: A patient with: 1) Intractable vomiting and dehydration from possible small bowel obstruction. Surgical consultation is pending. The patient will be given IV fluids and placed at gut rest. We are currently leaving the NG tube until surgical evaluation as it appears the patient is already improving by the time of my evaluation. 2) Urinary tract infection: We will culture the urine and place the patient on Zosyn empirically to cover urinary tract infection and possible gut organisms.
[2017-12-28] MEDS: TENORMIN 50 MG PO SCH (10:45)
[2017-12-28] MEDS: Cardizem CD 300 MG PO SCH (10:45)
[2017-12-28] MEDS: LOTRIMIN CREAM 30 GM TP SCH ×4 (10:50→22:30)
[2017-12-28] MEDS: Zosyn 2.25 GM 2.25 GM in Dextrose 5%/Water IV Soln. 100ML PLUS BAG 100 ML IV SCH ×3 (10:50→23:48)
--- NOTE | 2017-12-28 11:21 | CONS ---
CONSULT DATE: 12/28/2017 This patient is seen for Dr. Claudio Pierre who was consulted during the night. HISTORY: An 87 year-old female with past history of perforated ulcer procedure by Dr. Pierre in the past according to the patient. She had some cramping, nausea, vomiting at 2100 hours last night. She came in and CT scan showed she had bilateral inguinal hernia and question of obstruction so they called Dr. Pierre. He asked that I see the patient while I was doing some other procedures here today. PAST MEDICAL HISTORY: Hypertension. Prior history of perforated ulcer according to the patient. Hepatitis in the past. She had some cataracts in the past. PAST SURGICAL HISTORY: Varicose vein surgery. She had cataracts removed. Upper endoscopy. She had ulcer treated by Dr. Pierre according to the patient. She has chronic inguinal area hernias. MEDICATIONS: Atenolol, diltiazem. ALLERGIES: SULFA. REVIEW OF SYSTEMS: Twelve systems reviewed pertinent for as noted above. No chest pain or palpitations. She did have a bowel movement this morning she states since she has been on the floor. She is afebrile. She is feeling better. LAB DATA AND TESTS: White blood cell count was 15 last night, hemoglobin 17. PLT count fine 180,000. Liver function test was okay. I do not see where they did a lipase. I do not see that on the chart. CT scan showed some fluid-filled bowel loops, got a large hiatal hernia, duodenal diverticulum. She had some fluid-filled small bowel loops, bilateral inguinal hernia, and some right hydronephrosis. The radiologist did not think there was a calculus in the distal ureter though. She did have a contaminated urine specimen. PHYSICAL EXAMINATION: GENERAL: No acute distress. She did not have NG in. HEENT: Sclera nonicteric. NECK: No JVD. CHEST: Equal excursion, nonlabored breathing. CVS: Regular rate and rhythm. ABDOMEN: Soft, nontender. No peritoneal signs. She had bilateral reducible inguinal hernia that are quite soft, nontender whatsoever. She does have rash in the groin area. She does wear Depends. EXTREMITIES: No significant edema. NEURO: Alert, moving extremities grossly symmetrically. IMPRESSION: An 87 year-old patient of Dr. Pierre who was consulted yesterday. Her CT's were reviewed with Dr. Calixto Graves which showed she does have bilateral hernia. He does not feel they are incarcerated at this time. On clinical exam they are quite soft and reducible. If there is a pattern on the CT scan more consistent with ileus or whether this is merely gastroenteritis, partial obstruction or other etiology is unclear but either way her bilateral inguinal hernias were completely reducible at this point as she does have a rash in the area. I feel it would be better if she can get over this episode to that explored more on elective basis with Dr. Pierre as he has already treated her when she gets over the rash. The patient also wants to avoid surgery at this time. She completely agrees with the plan. Therefore continue bowel rest, IV hydration. If she is passing more gas and having bowel movements, advance her diet and her reducible bilateral inguinal hernia repaired as an outpatient. If she develops any recurrent nausea and vomiting we recommend placing NG for decompression. Otherwise no emergent surgery necessary at this point. Discussed with Dr. Nelson who evaluated with the patient and he also agrees to the plan. Continue conservative management for now as her bilateral inguinal hernia is reducible, soft and nontender. It did not appear to be causing mildly dilated bowel at this time. Continue conservative management, follow up with Dr. Pierre for elective hernia repair when her rash improves. Again, the patient was seen for Dr. Claudio Pierre who has treated the patient in the past.
[2017-12-28] MEDS: Sodium Chloride 0.9% 1000 ML 1,000 ML IV SCH ×2 (11:37→22:23)
--- NOTE | 2017-12-28 14:11 | XRAY ---
Indication: Abdominal pain and vomiting. History of bleeding ulcer. Multiple contiguous axial images obtained through the abdomen and pelvis without contrast as ordered. Comparison: October 17, 2012. Lung bases again demonstrates moderate bilateral atelectasis/scarring. New left lower lobe calcified granuloma. No infiltrates or effusion. Heart remains enlarged. New large hiatal hernia with partial intrathoracic fluid distended stomach. Stomach is moderately distended with fluid/air. Interval enlarging descending duodenal diverticulum today measuring 4.9 cm in greatest dimension. Small bowel loops are now mild/moderately distended with fluid/air and synchronous fluid leveling favoring ileus. Interval enlarging large bilateral inguinal hernias with herniated bowel loops bilaterally. No evidence for incarceration/obstruction. There is distal colonic bowel gas with right hemicolon fecal debris and again scattered descending/sigmoid diverticulosis. No free fluid/air. There is now what appears to be complete prolapse of the uterus and urinary bladder. Both kidneys are also now mildly hydronephrotic without calculus or perinephric fluid. Remaining liver, gallbladder, pancreas, spleen, adrenal glands, kidneys, and ureters appear unremarkable for noncontrast exam. Again mild scattered aortoiliac calcifications without AAA. Osseous structures intact with multilevel lumbar degenerative spondylosis and grade 1 L4 spondylolisthesis. New small fatty midline epigastric ventral hernia. Impression: 1. Interval enlarging large bilateral inguinal hernias with herniated bowel loops but no evidence for incarceration/obstruction. 2. Distended stomach and small bowel loops with synchronous air fluid leveling favoring ileus. Mild/early distal obstruction not completely excluded in the right clinical setting especially given the inguinal hernias. 3. Enlarging large hiatal hernia with partial intrathoracic fluid distended stomach. 4. Enlarging duodenal diverticulum. 5. New complete prolapsed urinary bladder and uterus. 6. New mild bilateral hydronephrotic kidneys that may be related to prolapsed bladder. 7. New small fatty epigastric ventral hernia. 8. Again incidental colonic diverticulosis, cardiomegaly, and L4 grade 1 spondylolisthesis. Comment: Preliminary interpretation was made by [facility]. No critical discrepancy. CT DI 22.28
[2017-12-29 05:48] LABS: BASOPHIL % 0.2 % (0.0-0.4); Basophil (Absolute #) 0.02 (0-0.4); Eosinophil % 3.5 % (0.00-5.0); Eosinophil (Absolute #) 0.38 (0-0.5); Granulocyte Absolute (ANC) 7.72 (1.4-6.9); Granulocytes % 70.8 % (36.0-66.0); Hematocrit 40.7 % (35-47); Hemoglobin 13.1 gm/dl (12.0-16.0); Lymphocyte (Absolute #) 1.39 (1.0-4.6); Lymphocytes % 12.7 % (24.0-44.0); Mean Cell Volume 96.7 fl (78-100); Mean Corpuscular Hemoglobin 31.1 pg (26-32); Mean Corpuscular Hgb Concent. 32.2 g/dl (32-36); Mean Platelet Volume 10.6 fl (6-9.5); Monocytes % 12.8 % (0.0-12.0); Platelet Count 153 K/mm3 (150-450); Red Blood Count 4.21 M/mm3 (4.1-5.4); Red Cell Distribution Width 14.4 % (11.5-14.0); White Blood Count 10.9 K/mm3 (4.0-10.5)
[2017-12-29 06:13] LABS: ALBUMIN 3.2 g/dL (3.5-5.0); ALKALINE PHOSPHATASE 59 U/L (38-126); BLOOD UREA NITROGEN 22 mg/dL (7-17); CHLORIDE 107 mmol/L (98-107); Calcium 7.9 mg/dL (8.4-10.2); Carbon Dioxide 28 mmol/L (22-30); Creatinine 1 0.72 mg/dL (0.52-1.04); Glucose 107 mg/dL (74-106); Potassium 3.6 mmol/L (3.5-5.1); SGOT/AST 13 U/L (14-36); SGPT/ALT 8 U/L (0-35); SODIUM 141 mmol/L (137-145)
[2017-12-29] MEDS: Zosyn 2.25 GM 2.25 GM in Dextrose 5%/Water IV Soln. 100ML PLUS BAG 100 ML IV SCH ×3 (07:01→17:44)
[2017-12-29] MEDS: LOTRIMIN CREAM 30 GM TP SCH ×2 (09:29→16:28)
[2017-12-29] MEDS: TENORMIN 50 MG PO SCH (09:29)
[2017-12-29] MEDS: Cardizem CD 300 MG PO SCH (09:29)
[2017-12-29] MEDS: Sodium Chloride 0.9% 1000 ML 1,000 ML IV SCH ×2 (14:47→16:29)
[2017-12-30] MEDS: Zosyn 2.25 GM 2.25 GM in Dextrose 5%/Water IV Soln. 100ML PLUS BAG 100 ML IV SCH ×2 (00:22→06:05)
[2017-12-30] MEDS: Sodium Chloride 0.9% 1000 ML 1,000 ML IV SCH (02:52)
[2017-12-30 05:52] LABS: Hematocrit 41.5 % (35-47); Hemoglobin 13.4 gm/dl (12.0-16.0); Mean Cell Volume 95.8 fl (78-100); Mean Corpuscular Hemoglobin 30.9 pg (26-32); Mean Corpuscular Hgb Concent. 32.3 g/dl (32-36); Mean Platelet Volume 10.9 fl (6-9.5); Platelet Count 161 K/mm3 (150-450); Red Blood Count 4.33 M/mm3 (4.1-5.4); Red Cell Distribution Width 14.4 % (11.5-14.0); White Blood Count 9.9 K/mm3 (4.0-10.5)
[2017-12-30 06:04] LABS: ANION GAP 9.6 MEQ/L (5-15); BLOOD UREA NITROGEN 13 mg/dL (7-17); CHLORIDE 107 mmol/L (98-107); Carbon Dioxide 28 mmol/L (22-30); Creatinine 1 0.63 mg/dL (0.52-1.04); Glucose 101 mg/dL (74-106); Potassium 3.7 mmol/L (3.5-5.1); SODIUM 141 mmol/L (137-145)
--- NOTE | 2017-12-30 08:27 | PCM.DCORD ---
- Discharge Discharge Date: 12/30/17 Disposition: HOME HEALTH SERVICE Prescriptions: New Levofloxacin [Levaquin] 250 mg PO DAILY 5 Days #5 tablet Clotrimazole Cream 30 gm [Lotrimin Cream 30 gm] 30 gm TP TID cream Continue Diltiazem HCl [Cartia Xt] 300 mg PO DAILY Atenolol 50 mg PO DAILY Follow up with: JAVIER PINEDA [Primary Care Provider] - 1 Week EVAN WARREN [COURTESY STAFF] - 1 Week (whoever will be in [place] )
[2017-12-30] MEDS: TENORMIN 50 MG PO SCH (09:49)
[2017-12-30] MEDS: Cardizem CD 300 MG PO SCH (09:50)
[2017-12-30] MEDS: LOTRIMIN CREAM 30 GM TP SCH (09:50)
[2017-12-30] MEDS ORDERED: IMODIUM 2 MG PO ONE (10:40)
[2017-12-30 12:07] VITALS: BP 132/67; PULSE 63; O2SAT 94
--- NOTE | 2017-12-30 13:20 | DS ---
DISCHARGE DIAGNOSES: 1) ILEUS. 2) DEHYDRATION. 3) URINARY TRACT INFECTION. HISTORY: The patient is an 87 year-old white female who reported that she was doing well until she began having problems with vomiting which became intractable. She presented to the emergency room where she was found to have what appeared to be a small bowel obstruction with inguinal hernias. The patient was admitted to the hospital for further evaluation, management and surgical consultation. HOSPITAL COURSE: The patient was admitted on IV fluids. It was also found that she appeared to have a urinary tract infection. The culture did grow out Enterobacter cloacae sensitive to everything except cefuroxime. The patient had been placed empirically on Zosyn and was tolerating this well. Her white blood cell count was initially elevated but dropped to 9,900 after the initiation of Zosyn. The patient was able to ambulate and increase her diet fairly quickly and eating regular meals by the afternoon of 12/29/2017. By 12/30/2017, the patient was ready for discharge home. She had been ambulating in the hallway nicely with PT. She is eating normally at this time. The patient was felt to be ready for discharge home. The patient does also have problems with a rash in the suprapubic area consistent with dermatophyte-type infection. She was given Lotrisone cream for this and she will continue this at home as well. The discharge plans were for the patient to return home, follow up in the office in one week. She will be discharged home on Levaquin at 250 mg daily for seven days. She will have Lotrisone cream to use three times a day on the rash. She is to call if she has problems in the interim or return to the hospital. She will continue to use her home medications which are Atenolol and diltiazem otherwise.
== END 2017-12-30 12:30 | disposition home health service (06) | DRG 389 ==
LOC: ED 01:10 → MED SURG 06:21
PROVIDERS: ADMIT Family Medicine; ATTEND Family Medicine
DX: K56.7 Ileus, unspecified (principal); N39.0 Urinary tract infection, site not specified; E86.0 Dehydration; B96.89 Other specified bacterial agents as the cause of diseases classified elsewhere; Z16.39 Resistance to other specified antimicrobial drug; Z87.11 Personal history of peptic ulcer disease; I73.9 Peripheral vascular disease, unspecified; K56.609 Unspecified intestinal obstruction, unspecified as to partial versus complete obstruction; R11.2 Nausea with vomiting, unspecified; R10.13 Epigastric pain; I10 Essential (primary) hypertension; K75.9 Inflammatory liver disease, unspecified; Z79.899 Other long term (current) drug therapy
CPT/HCPCS: 36000; 36415; 74176; 80048; 80053; 81000; 83605; 84484; 85025; 85027; 87077; 87086; 87186; 93005; 94762; 96360; 96374; 96375; 99285; J2405; J2543; J2550; A9270-GY

== ENCOUNTER 2018-07-21 11:15 | Inpatient (IN) | payer MEDICARE ==
[2018-07-21] MEDS ORDERED: Sodium Chloride 0.9% 1000 ML 1,000 ML IV STA (11:26)
[2018-07-21] MEDS ORDERED: Sodium Chloride 0.9% 1000 ML 1,000 ML ONE (11:43)
[2018-07-21] MEDS ORDERED: Sodium Chloride 0.9% 1000 ML 1,000 ML IV SCH (12:00)
--- NOTE | 2018-07-21 12:02 | ERPHSYRPT ---
- History of Present Illness Time Seen by Provider: 07/21/18 11:49 Source: patient Exam Limitations: no limitations Patient Subjective Stated Complaint: pt arrived per ambulance from home for dizziness last night when she got up, she states she has none now,some nausea but no vomiting, is being treated for UTI, she was given Cipro but had an allergic reaction so was taken off med. Triage Nursing Assessment: pt alert, up to bsc with assist of one, tolerated well, she has dry rough rash to right arm, neck and back she states is getting better, edema to lower legs with a compression wrap to left lower leg she states home health care sees her for. moves all extermities well Physician History: 87-year-old white female with history of high blood pressure, cataracts, GI bleed, ulcers, viral hepatitis Patient is brought by medics with complaint of feeling dizzy and apparently feeling dizzy last night noticed by her family to not be able to do her usual activities this morning she states she feels dizzy when she stands up no nausea no vomiting. She states she is having no problems moving her extremities or speaking. Past medical history includes cataracts, high blood pressure, viral hepatitis, GI bleed, ulcers Past surgical history includes vascular surgery (tied off varicose vein), cataracts removed, EGD Social history denies tobacco alcohol or illicit drugs Timing/Duration: other (patient apparently reported beingdizzy last pm this morning family noted patient unable to do her normal activities, patient states she feels dizzy when she stands up) Severity: moderate Modifying Factors: Improves With: nothing Associated Symptoms: other (Dizzy when she stands up), No nausea, No vomiting, No abdominal pain, No shortness of breath, No heartburn, No diaphoresis, No cough, No chills, No chest pain, No fever, No headaches, No loss of appetite, No malaise, No rash, No syncope, No seizure, No weakness Allergies/Adverse Reactions: Sulfa (Sulfonamide Antibiotics) Allergy (Verified 07/21/18 11:27) Hives Home Medications: Atenolol 50 mg PO DAILY 05/08/17 [History] Diltiazem HCl [Cartia Xt] 300 mg PO DAILY 05/08/17 [History] Cefdinir [Omnicef] 300 mg DAILY 07/21/18 [History] Hydroxyzine HCl 10 mg DAILY 07/21/18 [History] Hx Tetanus, Diphtheria Vaccination/Date Given: Yes Hx Influenza Vaccination/Date Given: Yes Hx Pneumococcal Vaccination/Date Given: Yes - Review of Systems Constitutional: No Fever, No Chills Eyes: No Symptoms Ears, Nose, & Throat: No Symptoms Respiratory: No Cough, No Dyspnea Cardiac: No Chest Pain, No Edema, No Syncope Abdominal/Gastrointestinal: No Abdominal Pain, No Nausea, No Vomiting, No Diarrhea Genitourinary Symptoms: No Dysuria Musculoskeletal: No Back Pain, No Neck Pain Skin: No Rash Neurological: Dizziness, No Focal Weakness, No Gait Changes, No Headache, No Irritability, No Lethargy, No Paralysis, No Parasthesia, No Seizure, No Sensory Changes, No Speech Changes, No Tics, No Tremors, No Vertigo, No Other Psychological: No Symptoms Endocrine: No Symptoms All Other Systems: Reviewed and Negative - Past Medical History Pertinent Past Medical History: Yes Neurological History: No Pertinent History ENT History: Cataracts Cardiac History: Hypertension Respiratory History: No Pertinent History Endocrine Medical History: No Pertinent History Musculoskeletal History: No Pertinent History GI Medical History: No Pertinent History History: No Pertinent History Psycho-Social History: No Pertinent History Female Reproductive Disorders: No Pertinent History Other Medical History: viral hepititis - Past Surgical History Past Surgical History: Yes Neuro Surgical History: No Pertinent History Cardiac: Vascular Surgery Respiratory: No Pertinent History Gastrointestinal: No Pertinent History Genitourinary: No Pertinent History Musculoskeletal: No Pertinent History Female Surgical History: No Pertinent History Other Surgical History: Tied off a varicose vein, cataracts removed, EGD. bleeding ulcer repaired 2014 - Social History Smoking Status: Never smoker Exposure to second hand smoke: No Drug Use: none Patient Lives Alone: Yes - Female History Hx Last Menstrual Period: post Hx Now: No - Nursing Vital Signs Nursing Vital Signs: Initial Vital Signs Temperature 97.4 F 07/21/18 11:30 Pulse Rate 74 07/21/18 11:30 Respiratory Rate 16 07/21/18 11:30 Blood Pressure 181/88 07/21/18 11:30 O2 Sat by Pulse Oximetry 95 07/21/18 11:30 Pain Scale Pain Intensity 0 - Physical Exam General Appearance: no apparent distress, alert Eye Exam: PERRL/EOMI, eyes nml inspection Ears, Nose, Throat Exam: normal ENT inspection, TMs normal, pharynx normal, moist mucous membranes Neck Exam: normal inspection, non-tender, supple, full range of motion Respiratory Exam: normal breath sounds, lungs clear, No respiratory distress Cardiovascular Exam: regular rate/rhythm, normal heart sounds, normal peripheral pulses, capillary refill <2 sec Gastrointestinal/Abdomen Exam: soft, normal bowel sounds, No tenderness, No mass Back Exam: normal inspection, normal range of motion, No CVA tenderness, No vertebral tenderness Extremity Exam: normal inspection, normal range of motion, pelvis stable Neurologic Exam: alert, oriented x 3, cooperative, urgent care nurse practitioner II-XII nml as tested, normal mood/affect, nml cerebellar function, nml station & gait, sensation nml, No motor deficits Skin Exam: normal color, warm, dry, No rash SpO2 Interpretation: normal (95%) SpO2: 95 - Course EKG Interpreted by Me: RATE (72 bpm), Sinus Rhythm, Left [place] Deviation, Other ( EKG: Sinus rhythm, 72 bpm, left axis deviation, left anterior fascicular block, no acute ST or T wave changes as compared to December 28, 2017) - Radiology Exams Chest X-ray Interpretation: Discussed w/ radiologist (chest x-ray: Impression: Non- acute chest with chronic features) - CT Exams Head CT Interpretation: Discussed w/radiologist (head CT: Impression: Nonacute senile brain) Ordered Tests: Active Orders 24 hr Category Date Time Status Accucheck STAT Care 07/21/18 11:56 Active EKG-ER Only STAT Care 07/21/18 11:56 Active IV Insertion STAT Care 07/21/18 11:56 Active Orthostatic Vital Signs STAT Care 07/21/18 11:56 Active Regular Diet Diet 07/21/18 Dinner Active CHEST 1 VIEW (PORTABLE) Stat Exams 07/21/18 12:18 Completed HEAD WITHOUT CONTRAST [CT] Stat Exams 07/21/18 11:56 Completed CBC W DIFF Stat Lab 07/21/18 11:23 Completed CMP Stat Lab 07/21/18 11:23 Completed ETHYL ALCOHOL Stat Lab 07/21/18 11:23 Completed TROPONIN Q3H Lab 07/21/18 11:23 Completed TROPONIN Q3H Lab 07/21/18 15:00 Ordered TROPONIN Q3H Lab 07/21/18 18:00 Ordered TROPONIN Q3H Lab 07/21/18 21:00 Ordered TROPONIN Q3H Lab 07/22/18 00:00 Ordered UA W/RFX UR CULTURE Stat Lab 07/21/18 11:56 Completed Medication Summary Generic Name Dose Route Start Last Admin Trade Name Segunq PRN Reason Stop Dose Admin Sodium Chloride 1,000 mls @ 100 mls/hr 07/21/18 12:00 07/21/18 12:02 Sodium Chloride 0.9% 1000 Ml IV 08/20/18 11:59 100 mls/hr .Q10H JESUS Administration Discontinued Medications Generic Name Dose Route Start Last Admin Trade Name Freq PRN Reason Stop Dose Admin Sodium Chloride 1,000 mls @ 999 mls/hr 07/21/18 11:26 07/21/18 12:02 Sodium Chloride 0.9% 1000 Ml IV 07/21/18 12:26 Not Given .Q1H1M STA Sodium Chloride Confirm 07/21/18 11:43 Sodium Chloride 0.9% 1000 Ml Administered 07/21/18 11:44 Dose 1,000 mls @ ud .ROUTE .STK-MED ONE Lab/Rad Data: Laboratory Result Diagrams 07/21/18 11:23 07/21/18 11:23 Laboratory Results 07/21/18 07/21/18 07/21/18 Range/Units 11:56 11:23 11:23 WBC (4.0-10.5) K/mm3 RBC (4.1-5.4) M/mm3 Hgb (12.0-16.0) gm/dl Hct (35-47) % MCV (78-100) fl MCH (26-32) pg MCHC (32-36) g/dl RDW (11.5-14.0) % Plt Count (150-450) K/mm3 MPV (6-9.5) fl Gran % (36.0-66.0) % Eos # (Auto) (0-0.5) Absolute Lymphs (auto) (1.0-4.6) Absolute Monos (auto) (0.0-1.3) Lymphocytes % (24.0-44.0) % Monocytes % (0.0-12.0) % Eosinophils % (0.00-5.0) % Basophils % (0.0-0.4) % Absolute Granulocytes (1.4-6.9) Basophils # (0-0.4) Sodium 138 (137-145) mmol/L Potassium 4.4 (3.5-5.1) mmol/L Chloride 101 (98-107) mmol/L Carbon Dioxide 26 (22-30) mmol/L Anion Gap 14.6 (5-15) MEQ/L BUN 14 (7-17) mg/dL Creatinine 0.72 (0.52-1.04) mg/dL Estimated GFR > 60.0 ML/MIN Glucose 111 H (74-106) mg/dL Calcium 9.1 (8.4-10.2) mg/dL Total Bilirubin 0.90 (0.2-1.3) mg/dL AST 21 (14-36) U/L ALT 12 (0-35) U/L Alkaline Phosphatase 102 (38-126) U/L Troponin I < 0.012 (0.000-0.034) ng/mL Serum Total Protein 8.7 H (6.3-8.2) g/dL Albumin 4.2 (3.5-5.0) g/dL Urine Color YELLOW (YELLOW) Urine Appearance SLIGHTLY CLOUDY (CLEAR) Urine pH 6.0 (5-6) Ur Specific [place] 1.018 (1.005-1.025) Urine Protein NEGATIVE (Negative) Urine Ketones TRACE (NEGATIVE) Urine Blood SMALL (0-5) Tony/ul Urine Nitrite NEGATIVE (NEGATIVE) Urine Bilirubin NEGATIVE (NEGATIVE) Urine Urobilinogen NEGATIVE (0-1) mg/dL Ur Leukocyte Esterase MODERATE (NEGATIVE) Urine WBC (Auto) 3-5 (0-5) /HPF Urine RBC (Auto) 3-5 (0-2) /HPF U Epithel Cells (Auto) FEW (FEW) /HPF Urine Bacteria (Auto) RARE (NEGATIVE) /HPF Urine Mucus (Auto) SLIGHT (NEGATIVE) /HPF Urine Culture Reflexed YES (NO) Urine Glucose 50 (NEGATIVE) mg/dL Ethyl Alcohol < 10 (0-10) mg/dL 07/21/18 Range/Units 11:23 WBC 11.2 H (4.0-10.5) K/mm3 RBC 4.95 (4.1-5.4) M/mm3 Hgb 14.5 (12.0-16.0) gm/dl Hct 46.2 (35-47) % MCV 93.3 (78-100) fl MCH 29.3 (26-32) pg MCHC 31.4 L (32-36) g/dl RDW 15.6 H (11.5-14.0) % Plt Count 285 (150-450) K/mm3 MPV 10.8 H (6-9.5) fl Gran % 73.1 H (36.0-66.0) % Eos # (Auto) 0.43 (0-0.5) Absolute Lymphs (auto) 1.60 (1.0-4.6) Absolute Monos (auto) 0.98 (0.0-1.3) Lymphocytes % 14.3 L (24.0-44.0) % Monocytes % 8.7 (0.0-12.0) % Eosinophils % 3.8 (0.00-5.0) % Basophils % 0.1 (0.0-0.4) % Absolute Granulocytes 8.20 H (1.4-6.9) Basophils # 0.01 (0-0.4) Sodium (137-145) mmol/L Potassium (3.5-5.1) mmol/L Chloride (98-107) mmol/L Carbon Dioxide (22-30) mmol/L Anion Gap (5-15) MEQ/L BUN (7-17) mg/dL Creatinine (0.52-1.04) mg/dL Estimated GFR ML/MIN Glucose (74-106) mg/dL Calcium (8.4-10.2) mg/dL Total Bilirubin (0.2-1.3) mg/dL AST (14-36) U/L ALT (0-35) U/L Alkaline Phosphatase (38-126) U/L Troponin I (0.000-0.034) ng/mL Serum Total Protein (6.3-8.2) g/dL Albumin (3.5-5.0) g/dL Urine Color (YELLOW) Urine Appearance (CLEAR) Urine pH (5-6) Ur Specific [place] (1.005-1.025) Urine Protein (Negative) Urine Ketones (NEGATIVE) Urine Blood (0-5) Tony/ul Urine Nitrite (NEGATIVE) Urine Bilirubin (NEGATIVE) Urine Urobilinogen (0-1) mg/dL Ur Leukocyte Esterase (NEGATIVE) Urine WBC (Auto) (0-5) /HPF Urine RBC (Auto) (0-2) /HPF U Epithel Cells (Auto) (FEW) /HPF Urine Bacteria (Auto) (NEGATIVE) /HPF Urine Mucus (Auto) (NEGATIVE) /HPF Urine Culture Reflexed (NO) Urine Glucose (NEGATIVE) mg/dL Ethyl Alcohol (0-10) mg/dL - Progress Progress: improved Progress Note: 07/21/18 14:34 Patient is brought by family with complaint that the patient was unable to complete her normal tasks at home she apparently has been complaining of being dizzy since last night. On arrival patient appears to be alert and oriented cranial nerves II through XII are intact speech is normal executive chef are equal and symmetrical 5 over 5 normal [id number] Patient's labs CBC White blood cell 11.2 hemoglobin 14.5 hematocrit 46.2 platelets 285 chemistry sodium 138 potassium 4.4 chloride 101 bicarbonate 26 BUN 14 creatinine 0.72 glucose 111 Urinalysis specific gravity 1.018 pH 6.003-5 red cells 3-5 white cells Blood alcohol is less than 10 Patient's EKG sinus rhythm, 72 bpm left axis deviation no acute ST or T wave changes are noted Patient's CT head nonacute senile brain Chest x-ray nonacute chest with chronic features. Impression dizziness. Plan patient's family were concerned about the patient going home today states that she lives alone and is unable to take care of herself. I've discussed the patient's case with Dr. Westbrook who is athletic monitor for Dr. Nelson will place patient on observation. Obtain serial neuro neuro checks and provide IV normal saline. Impression dizziness. - Departure Time of Disposition: 14:37 Departure Disposition: Observation Clinical Impression: Dizziness Condition: Fair Critical Care Time: No Referrals: JAVIER NELSON [Primary Care Provider] -
[2018-07-21 12:09] LABS: ALBUMIN 4.2 g/dL (3.5-5.0); ALKALINE PHOSPHATASE 102 U/L (38-126); ANION GAP 14.6 MEQ/L (5-15); BLOOD UREA NITROGEN 14 mg/dL (7-17); CHLORIDE 101 mmol/L (98-107); Calcium 9.1 mg/dL (8.4-10.2); Carbon Dioxide 26 mmol/L (22-30); Creatinine 1 0.72 mg/dL (0.52-1.04); ETHYL ALCOHOL < 10 mg/dL (0-10); Glucose 111 mg/dL (74-106); Potassium 4.4 mmol/L (3.5-5.1); SGOT/AST 21 U/L (14-36); SGPT/ALT 12 U/L (0-35); SODIUM 138 mmol/L (137-145); Total Protein 8.7 g/dL (6.3-8.2)
[2018-07-21 12:10] LABS: BASOPHIL % 0.1 % (0.0-0.4); Basophil (Absolute #) 0.01 (0-0.4); Eosinophil % 3.8 % (0.00-5.0); Eosinophil (Absolute #) 0.43 (0-0.5); Granulocytes % 73.1 % (36.0-66.0); Hematocrit 46.2 % (35-47); Hemoglobin 14.5 gm/dl (12.0-16.0); Lymphocytes % 14.3 % (24.0-44.0); Mean Cell Volume 93.3 fl (78-100); Mean Corpuscular Hemoglobin 29.3 pg (26-32); Mean Corpuscular Hgb Concent. 31.4 g/dl (32-36); Mean Platelet Volume 10.8 fl (6-9.5); Monocyte (Absolute #) 0.98 (0.0-1.3); Monocytes % 8.7 % (0.0-12.0); Platelet Count 285 K/mm3 (150-450); Red Blood Count 4.95 M/mm3 (4.1-5.4); Red Cell Distribution Width 15.6 % (11.5-14.0); White Blood Count 11.2 K/mm3 (4.0-10.5)
[2018-07-21 12:20] LABS: Appearance SLIGHTLY CLOUDY (CLEAR); Bacteria RARE /HPF (NEGATIVE); Bilirubin NEGATIVE (NEGATIVE); Blood SMALL Ery/ul (0-5); Epithelial Cells FEW /HPF (FEW); Glucose 50 mg/dL (NEGATIVE); Ketones TRACE (NEGATIVE); Leukocyte Esterase MODERATE (NEGATIVE); Mucus SLIGHT /HPF (NEGATIVE); Nitrite NEGATIVE (NEGATIVE); Protein,Urine Dip NEGATIVE (Negative); Specific Gravity 1.018 (1.005-1.025); Urobilinogen NEGATIVE mg/dL (0-1)
--- NOTE | 2018-07-21 12:26 | XRAY ---
Indication: Dizziness. Comparison: May 08, 2017. Portable chest remains clear with incidental left base calcified granuloma. Heart is now borderline enlarged. Vascularity normal. CT proven hiatal hernia. Bony thorax intact again with osteopenia and degenerative changes. Impression: Nonacute chest with chronic features.
--- NOTE | 2018-07-21 12:29 | XRAY ---
Indication: Dizziness, nausea, and confusion. Multiple contiguous axial images obtained through the head without contrast. Comparison: None Age-appropriate global atrophy and moderate periventricular degenerative micro-ischemia bilaterally. No acute intracranial hemorrhage, abnormal extra-axial fluid collection, or mass effect. Fourth ventricle is midline without hydrocephalus. Bony calvarium intact. Visualized paranasal sinuses and mastoid air cells are clear. Impression: Nonacute senile brain. CT DI 70.87
[2018-07-21] MEDS ORDERED: Zofran 4 MG/2 ML VIAL IV PRN (16:52)
[2018-07-21] MEDS ORDERED: PHARMACY DOSING REQUEST MC ONE (18:11)
[2018-07-21] MEDS: TENORMIN 50 MG PO SCH (18:14)
[2018-07-21] MEDS: Cardizem CD 300 MG PO SCH (18:14)
[2018-07-21] MEDS: ATARAX 25 MG PO SCH (18:14)
[2018-07-21] MEDS ORDERED: Zosyn 3.375GM/100 Ml D5W 3.375 GM/100 ML IVPB IV SCH ×2 (18:15→20:00)
[2018-07-21] MEDS ORDERED: Zosyn 3.375GM/100 Ml D5W 3.375 GM/100 ML IVPB IV ONE (18:28)
[2018-07-21 18:44] LABS: Hematocrit 44.8 % (35-47); Hemoglobin 14.2 gm/dl (12.0-16.0); Mean Cell Volume 92.9 fl (78-100); Mean Corpuscular Hemoglobin 29.5 pg (26-32); Mean Corpuscular Hgb Concent. 31.7 g/dl (32-36); Platelet Count 285 K/mm3 (150-450); Red Blood Count 4.82 M/mm3 (4.1-5.4); Red Cell Distribution Width 15.4 % (11.5-14.0); White Blood Count 9.9 K/mm3 (4.0-10.5)
[2018-07-21 21:49] LABS: ALBUMIN 3.2 g/dL (3.5-5.0); BILIRUBIN,TOTAL 0.45 mg/dL (0.2-1.3); BLOOD UREA NITROGEN 10.6 mg/dL (7-17); CHLORIDE 104 mmol/L (98-107); Calcium 8.5 mg/dL (8.4-10.2); Glucose 123 mg/dL (74-106); Potassium 4.1 mmol/L (3.5-5.1); SGOT/AST 23 U/L (14-36); SGPT/ALT < 5 U/L (0-35); SODIUM 135 mmol/L (137-145); Total Protein 7.2 g/dL (6.3-8.2)
[2018-07-21 21:50] LABS: ALKALINE PHOSPHATASE 80 U/L (38-126); ANION GAP 13 MEQ/L (5-15)
[2018-07-21] MEDS: LOTRIMIN CREAM 30 GM TP SCH (22:16)
[2018-07-21] MEDS: Zosyn 3.375GM/100 Ml D5W 3.375 GM/100 ML IVPB IV SCH (23:16)
[2018-07-21] MEDS: Sodium Chloride 0.9% 1000 ML 1,000 ML IV SCH (23:16)
[2018-07-22] MEDS ORDERED: Zosyn 3.375GM/100 Ml D5W 3.375 GM/100 ML IVPB IV ONE (05:01)
[2018-07-22] MEDS: Zosyn 3.375GM/100 Ml D5W 3.375 GM/100 ML IVPB IV SCH ×4 (05:18→23:44)
[2018-07-22] MEDS: Sodium Chloride 0.9% 1000 ML 1,000 ML IV SCH ×3 (07:28→21:28)
[2018-07-22 07:43] LABS: BASOPHIL % 0.1 % (0.0-0.4); Basophil (Absolute #) 0.01 (0-0.4); Eosinophil % 4.3 % (0.00-5.0); Eosinophil (Absolute #) 0.47 (0-0.5); Granulocyte Absolute (ANC) 8.42 (1.4-6.9); Granulocytes % 76.2 % (36.0-66.0); Hematocrit 45.3 % (35-47); Hemoglobin 14.2 gm/dl (12.0-16.0); Lymphocyte (Absolute #) 1.11 (1.0-4.6); Lymphocytes % 10.1 % (24.0-44.0); Mean Cell Volume 92.8 fl (78-100); Mean Corpuscular Hemoglobin 29.1 pg (26-32); Mean Corpuscular Hgb Concent. 31.3 g/dl (32-36); Mean Platelet Volume 10.2 fl (6-9.5); Monocyte (Absolute #) 1.03 (0.0-1.3); Monocytes % 9.3 % (0.0-12.0); Platelet Count 297 K/mm3 (150-450); Red Blood Count 4.88 M/mm3 (4.1-5.4); Red Cell Distribution Width 15.6 % (11.5-14.0)
[2018-07-22 08:08] LABS: ALBUMIN 3.5 g/dL (3.5-5.0); ALKALINE PHOSPHATASE 78 U/L (38-126); ANION GAP 13.6 MEQ/L (5-15); BLOOD UREA NITROGEN 12 mg/dL (7-17); CHLORIDE 104 mmol/L (98-107); Calcium 8.6 mg/dL (8.4-10.2); Carbon Dioxide 25 mmol/L (22-30); Creatinine 1 0.73 mg/dL (0.52-1.04); Glucose 121 mg/dL (74-106); SGOT/AST 23 U/L (14-36); SGPT/ALT 9 U/L (0-35); SODIUM 139 mmol/L (137-145); Total Protein 7.4 g/dL (6.3-8.2)
[2018-07-22] MEDS: TENORMIN 50 MG PO SCH (09:58)
[2018-07-22] MEDS: ATARAX 25 MG PO SCH (09:58)
[2018-07-22] MEDS: LOTRIMIN CREAM 30 GM TP SCH ×3 (09:59→23:43)
[2018-07-22] MEDS: Cardizem CD 300 MG PO SCH (10:55)
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
[2018-07-22] MEDS ORDERED: ENOXAPARIN SODIUM SQ SCH (13:00)
[2018-07-22] MEDS: Protonix 40MG Tablet PO SCH (17:49)
[2018-07-22] MEDS ORDERED: Zosyn 3.375GM/100 Ml D5W 3.375 GM/100 ML IVPB IV SCH (18:25)
[2018-07-23] MEDS: Zosyn 3.375GM/100 Ml D5W 3.375 GM/100 ML IVPB IV SCH ×4 (05:35→23:44)
[2018-07-23 06:33] LABS: BASOPHIL % 0.2 % (0.0-0.4); Basophil (Absolute #) 0.02 (0-0.4); Eosinophil % 7.6 % (0.00-5.0); Eosinophil (Absolute #) 0.73 (0-0.5); Granulocyte Absolute (ANC) 6.37 (1.4-6.9); Granulocytes % 66.4 % (36.0-66.0); Hematocrit 40.8 % (35-47); Hemoglobin 12.6 gm/dl (12.0-16.0); Lymphocyte (Absolute #) 1.31 (1.0-4.6); Lymphocytes % 13.7 % (24.0-44.0); Mean Cell Volume 94.4 fl (78-100); Mean Corpuscular Hemoglobin 29.2 pg (26-32); Mean Corpuscular Hgb Concent. 30.9 g/dl (32-36); Mean Platelet Volume 9.9 fl (6-9.5); Monocyte (Absolute #) 1.16 (0.0-1.3); Monocytes % 12.1 % (0.0-12.0); Platelet Count 245 K/mm3 (150-450); Red Blood Count 4.32 M/mm3 (4.1-5.4); Red Cell Distribution Width 15.8 % (11.5-14.0); White Blood Count 9.6 K/mm3 (4.0-10.5)
[2018-07-23 06:55] LABS: ANION GAP 11.7 MEQ/L (5-15); BLOOD UREA NITROGEN 12 mg/dL (7-17); CHLORIDE 107 mmol/L (98-107); Carbon Dioxide 23 mmol/L (22-30); Glucose 104 mg/dL (74-106); Potassium 3.5 mmol/L (3.5-5.1); SODIUM 138 mmol/L (137-145)
[2018-07-23] MEDS: LOTRIMIN CREAM 30 GM TP SCH ×3 (09:21→22:33)
[2018-07-23] MEDS: ENOXAPARIN SODIUM SQ SCH (09:22)
[2018-07-23] MEDS: Sodium Chloride 0.9% 1000 ML 1,000 ML IV SCH ×2 (09:22→20:24)
[2018-07-23] MEDS: ATARAX 25 MG PO SCH (09:26)
[2018-07-23] MEDS: TENORMIN 50 MG PO SCH (09:27)
[2018-07-23] MEDS: Protonix 40MG Tablet PO SCH (09:27)
[2018-07-23] MEDS: Cardizem CD 300 MG PO SCH (09:35)
[2018-07-23] MEDS: Tums EX 750 MG PO PRN ×2 (13:22→22:37)
[2018-07-24] MEDS: Zosyn 3.375GM/100 Ml D5W 3.375 GM/100 ML IVPB IV SCH ×3 (06:25→17:17)
[2018-07-24] MEDS: Sodium Chloride 0.9% 1000 ML 1,000 ML IV SCH ×2 (07:58→20:44)
[2018-07-24] MEDS: LOTRIMIN CREAM 30 GM TP SCH ×2 (09:38→16:35)
[2018-07-24] MEDS: ENOXAPARIN SODIUM SQ SCH (09:40)
[2018-07-24] MEDS: TENORMIN 50 MG PO SCH (09:44)
[2018-07-24] MEDS: ATARAX 25 MG PO SCH (09:45)
[2018-07-24] MEDS: Protonix 40MG Tablet PO SCH (09:46)
[2018-07-24] MEDS: Cardizem CD 300 MG PO SCH (09:47)
[2018-07-24] MEDS: Tums EX 750 MG PO PRN ×3 (10:47→17:53)
[2018-07-24 20:19] LABS: Appearance SLIGHTLY CLOUDY (CLEAR); Bilirubin NEGATIVE (NEGATIVE); Blood NEGATIVE Ery/ul (0-5); Epithelial Cells RARE /HPF (FEW); Glucose NEGATIVE (NEGATIVE); Ketones NEGATIVE (NEGATIVE); Leukocyte Esterase NEGATIVE (NEGATIVE); Mucus SLIGHT /HPF (NEGATIVE); Nitrite NEGATIVE (NEGATIVE); Protein,Urine Dip NEGATIVE (Negative); Specific Gravity 1.014 (1.005-1.025); Urobilinogen NEGATIVE mg/dL (0-1)
[2018-07-24 20:20] LABS: Bacteria NONE SEEN /HPF (NEGATIVE); WBC NONE SEEN /HPF (0-5)
[2018-07-25] MEDS: Zosyn 3.375GM/100 Ml D5W 3.375 GM/100 ML IVPB IV SCH ×3 (00:48→11:45)
[2018-07-25] MEDS: LOTRIMIN CREAM 30 GM TP SCH ×2 (00:59→09:55)
[2018-07-25 05:52] LABS: BASOPHIL % 0.2 % (0.0-0.4); Basophil (Absolute #) 0.02 (0-0.4); Eosinophil % 4.7 % (0.00-5.0); Eosinophil (Absolute #) 0.53 (0-0.5); Granulocyte Absolute (ANC) 8.59 (1.4-6.9); Granulocytes % 75.5 % (36.0-66.0); Hematocrit 41.9 % (35-47); Hemoglobin 13.5 gm/dl (12.0-16.0); Lymphocyte (Absolute #) 1.06 (1.0-4.6); Lymphocytes % 9.3 % (24.0-44.0); Mean Cell Volume 92.3 fl (78-100); Mean Corpuscular Hemoglobin 29.7 pg (26-32); Mean Corpuscular Hgb Concent. 32.2 g/dl (32-36); Mean Platelet Volume 9.7 fl (6-9.5); Monocyte (Absolute #) 1.17 (0.0-1.3); Monocytes % 10.3 % (0.0-12.0); Platelet Count 244 K/mm3 (150-450); Red Blood Count 4.54 M/mm3 (4.1-5.4); Red Cell Distribution Width 15.3 % (11.5-14.0); White Blood Count 11.4 K/mm3 (4.0-10.5)
[2018-07-25 06:08] LABS: ANION GAP 12.6 MEQ/L (5-15); BLOOD UREA NITROGEN 8 mg/dL (7-17); CHLORIDE 106 mmol/L (98-107); Calcium 7.8 mg/dL (8.4-10.2); Carbon Dioxide 23 mmol/L (22-30); Creatinine 1 0.76 mg/dL (0.52-1.04); Glucose 111 mg/dL (74-106); Potassium 3.1 mmol/L (3.5-5.1); SODIUM 139 mmol/L (137-145)
[2018-07-25] MEDS: ENOXAPARIN SODIUM SQ SCH (09:55)
[2018-07-25] MEDS: ATARAX 25 MG PO SCH (09:56)
[2018-07-25] MEDS: Cardizem CD 300 MG PO SCH (09:57)
[2018-07-25] MEDS: Protonix 40MG Tablet PO SCH (09:57)
[2018-07-25] MEDS: TENORMIN 50 MG PO SCH (09:57)
[2018-07-25 12:25] VITALS: BP 168/88; PULSE 97
[2018-07-25 13:35] VITALS: O2SAT 93
== END 2018-07-25 14:25 | DRG 603 ==
LOC: ED 11:15 → ICU 15:25 → OBSVTOIN 18:11 → MED SURG 07-24 06:02
PROVIDERS: ADMIT Family Medicine; ATTEND Family Medicine
DX: L03.116 Cellulitis of left lower limb (principal); R42 Dizziness and giddiness; L02.416 Cutaneous abscess of left lower limb; L02.415 Cutaneous abscess of right lower limb; R41.82 Altered mental status, unspecified; I10 Essential (primary) hypertension; R53.1 Weakness; R53.83 Other fatigue; Z79.899 Other long term (current) drug therapy; Z79.01 Long term (current) use of anticoagulants
CPT/HCPCS: 36000; 36415; 70450; 71045; 80048; 80053; 81001; 82962; 83605; 84484; 85025; 85027; 87040; 87086; 93005; 93268; 94762; 96360; 96361; 97161; 97530; 99285; G0480; 80307; J1650; J2405; J2543; A9270-GY